=== PATIENT | female | born 1975 | race Caucasian/White ===

== ENCOUNTER 2016-12-11 09:29 | Emergency (ER) | payer BC, OTHER ==
[~2016-12-11] VITALS: Ht 170.2 cm; Wt 73.5 kg
[~2016-12-11 09:29] MED LIST: PRENTAB26 PO
[2016-12-11 09:32] VITALS: Ht 170.2 cm; Wt 73.5 kg
--- NOTE | 2016-12-11 10:01 | DIAGNOSTIC IMAGING REPORT ---
L ANKLE MIN 3 VIEWS ROUTINE CLINICAL HISTORY: L ankle injury trauma. Pain. COMPARISON: None. DISCUSSION: Transverse nondisplaced fracture tip distal fibula. Localized soft tissue edematous change. No evidence of dislocation. Subtalar joint is intact. Lateral soft tissue edema IMPRESSION: Transverse nondisplaced fracture tip distal fibula. Localized soft tissue edema. The above report was generated using voice recognition software. It may contain grammatical, syntax or spelling errors. Electronically signed by: Jaison Patterson M.D. 12/11/2016 10:00 AM Dictated Date/Time: 12/11/2016 9:59 AM
[2016-12-11] MEDS ORDERED: BIOT1TAB5 PO (10:17)
[2016-12-11] MEDS ORDERED: MULT-506 PO (10:17)
[2016-12-11] MEDS ORDERED: CLX20 PO (10:17)
[2016-12-11 11:12] VITALS: BP 129/69; PULSE 64; TEMP 37.4; O2SAT 100
--- NOTE | 2016-12-11 16:11 | EMERGENCY ROOM VISIT NOTE ---
History First contact with patient: 09:34 Chief Complaint: ANKLE PAIN Stated Complaint: TWISTED LEFT ANKLE History of Present Illness The patient is a 41 year old female who presents to the Emergency Room with complaints of left ankle pain. The patient reports that she was walking her children when a sidewalk when her left foot went over the edge, causing her to twist her ankle. She reports persistent pain over the outer aspect of the ankle. She denies any pain extending into the foot or leg. Denies paresthesias or numbness of the left foot or toes. She denies any prior history of significant left ankle injuries, and rates her discomfort a 6 out of 10 with weightbearing. Review of Systems 10 system review was performed and was negative except for pertinent positives and negatives as indicated in history of present illness Past Medical/Surgical History Medical Problems: (1) No significant past medical history Surgical Problems: (1) History of hernia repair (2) History of tubal ligation Family History FH: cancer FH: heart disease FH: hypertension Social History Smoking Status: Never Smoker Alcohol Use: occasionally Marital Status: Housing Status: lives with family Occupation Status: employed Current/Historical Medications Scheduled Biotin (Biotin), 1,000 MCG PO DAILY Citalopram (Citalopram Hydrobromide), 20 MG PO DAILY Multivitamin (Multivitamin), 1 TAB PO DAILY Physical Exam Vital Signs Date Time Temp Pulse Resp B/P (MAP) Pulse Ox O2 Delivery O2 Flow Rate FiO2 12/11/16 11:12 37.4 64 18 129/69 100 12/11/16 09:32 37.4 76 16 118/74 99 Room Air Physical Exam CONSTITUTIONAL: Healthy and well nourished. Alert and oriented X 3 with positive affect. Patient does not appear in any acute distress. HEENT: Normocephalic, atraumatic. Pupils equal, round and reactive. NECK: Full active range of motion without discomfort. MUSCULOSKELETAL: Examination of the left ankle shows lateral edema and mild ecchymosis. No open wounds noted. She has minimal discomfort to the deltoid ligament. Negative anterior draw. No focal tenderness over the midfoot, metatarsals, phalanges, calcaneus or Achilles tendon. No worsening discomfort with subtalar motion. Pedal pulses are intact. INTEGUMENTARY: No rash or other significant dermatologic conditions noted. NEUROLOGIC: Left foot and toes are sensory intact. Medical Decision & Procedures ER Provider Diagnostic Interpretation: My interpretation of left ankle x-rays confirms a nondisplaced transverse fracture of the distal lateral malleolus. Radiologist report is as follows: L ANKLE MIN 3 VIEWS ROUTINE CLINICAL HISTORY: L ankle injury trauma. Pain. COMPARISON: None. DISCUSSION: Transverse nondisplaced fracture tip distal fibula. Localized soft tissue edematous change. No evidence of dislocation. Subtalar joint is intact. Lateral soft tissue edema IMPRESSION: Transverse nondisplaced fracture tip distal fibula. Localized soft tissue edema. ED Course Patient history and physical exam were performed. Nurse's notes were reviewed. Vital signs were reviewed and were normal. The patient refused any analgesics while in the emergency department. X-rays of the left ankle confirms a nondisplaced distal fibula fracture. A posterior Ortho-Glass short- leg splint was applied, and crutches were dispensed with gait training. Neurovascular check after splint placement was normal. The patient was encouraged to ice and elevate the ankle for swelling. Ibuprofen and Tylenol in alternating fashion if needed for additional pain relief. Follow-up with orthopedics for further reevaluation and management. The patient was happy with plan of care, voiced understanding of all discharge instructions, and rated her pain a 3 out of 10 at the time of discharge. Medical Decision Medication Reconcilliation Current Medication List: was personally reviewed by me Blood Pressure Screening Patient's blood pressure: Normal blood pressure Impression Primary Impression: Closed fracture of left distal fibula Departure Information Dispostion Home / Self-Care Referrals Antonio Baker M.D. Forms HOME CARE DOCUMENTATION FORM, IMPORTANT VISIT INFORMATION Patient Instructions My [facility] Additional Instructions Ice and elevate ankle for swelling and pain. Ibuprofen 800 mg and/or Tylenol 1000 mg every 8 hours. You may also alternate these medications for more effective pain relief: Ibuprofen --4 HRS--> Tylenol --4 HRS--> ibuprofen --4 HRS--> Tylenol .... Keep splint dry. Follow-up with [facility] for further evaluation and treatment - call tomorrow morning for appointment. Problem Qualifiers Primary Impression: Closed fracture of left distal fibula Encounter type: initial encounter Fracture morphology: other fracture Qualified Codes: S82.832A - Other fracture of upper and lower end of left fibula, initial encounter for closed fracture
== END 2016-12-11 11:13 | disposition home or self-care (01) ==
LOC: C.EDB 09:30
DX: S82.65XA Nondisplaced fracture of lateral malleolus of left fibula, initial encounter for closed fracture (principal); W10.1XXA Fall (on)(from) sidewalk curb, initial encounter; Z98.51 Tubal ligation status; Z80.9 Family history of malignant neoplasm, unspecified; Z82.49 Family history of ischemic heart disease and other diseases of the circulatory system; Z79.899 Other long term (current) drug therapy